=== PATIENT | female | born 1950 | race Caucasian/White ===

== ENCOUNTER → 2018-12-10 | Outpatient (CLI) | payer MEDICARE, OTHER ==
[~2018-12-10] MED LIST: ALBU90OI61 INH; B-100 COMPLEX100 MG PO; B-121000 MC2 PO; CALCA500CH PO; CALMAGZIN PO; CHROMAX PO; CYCL10 PO; Colace100 MG PO; Cyclobenzaprine5 MG PO; DEXILANT60 MG PO; ERGO50000 PO; FEXPSEER PO; HYDACE10B PO; LEVFLO500 PO; MULVITMIND PO; Norco 10-325 T1 EACH PO; ONDA8ODT MM; OXAP600 PO; Percocet 5-3251 EACH PO; TOCO1000 PO; TOLT2; UBID10 PO; [UNRECOGNIZED DRUG - CODE] PO
[2018-12-10 16:31] LABS: Hematocrit 41.8 % (33.0-51.0); Mean Corpuscular HGB Conc 31.1 g/dL (31.5-36.5); Mean Corpuscular Volume 96 fL (80-100); Mean Platelet Volume 11.1 fL (9.1-12.4); Platelet Count 202 K/mm3 (150-400); RDW Coefficient Variation 13.2 % (11.7-14.2); RDW Standard Deviation 46.5 fL (35.1-46.3); Red Blood Cell Count 4.34 M/mm3 (3.80-5.20)
[2018-12-10 16:48] LABS: Alanine Aminotransfer (ALT/SGP 27 U/L (12-78); Albumin, Blood 3.9 g/dL (3.4-5.0); Albumin/Globulin Ratio 1.2 (0.8-1.8); Alk Phos 44 U/L (50-136); Anion Gap 6 mmol/L (6-16); Aspartate Aminotrans (AST/SGOT 19 U/L (12-37); Bilirubin, Total 0.3 mg/dL (0.1-1.0); Blood Urea Nitrogen 13 mg/dL (8-24); CHOL/HDL RATIO 4.9; CO2, Blood 26 mmol/L (21-32); Calcium, Blood 9.2 mg/dL (8.5-10.1); Chloride, Blood 108 mmol/L (98-108); Cholesterol 278 mg/dL (50-200); Globulin, Blood 3.2 g/dL (2.2-4.0); Glucose, Blood 88 mg/dL (70-99); HDL Cholesterol 57 mg/dL (>39); LDL/HDL RATIO 3.1; Low Density Lipoprotein Chol 176 mg/dL (0-110); Potassium, Blood 4.5 mmol/L (3.5-5.5); Sodium, Blood 140 mmol/L (136-145); Total Protein, Blood 7.1 g/dL (6.4-8.2); Triglycerides 226 mg/dL (30-160); Very Low Density Lipoprot Chol 45 mg/dL (6-32)
[2018-12-10 16:53] LABS: Bun/Creatinine Ratio 20.2 (12.0-20.0); Creatinine, Blood 0.64 mg/dL (0.40-1.00); Glomerular Filtration Rate >60 (60-)
[2018-12-10 17:04] LABS: BASOPHILS PERCENT MAN 0 % (0-2); EOSINOPHILS ABSOLUTE MAN 0.23 K/mm3 (0.00-0.68); EOSINOPHILS PERCENT MAN 2 % (0-6); LYMPHOCYTES ABSOLUTE MAN 7.37 K/mm3 (0.84-5.20); LYMPHOCYTES PERCENT MAN 62 % (21-46); MONOCYTES ABSOLUTE MAN 0.71 K/mm3 (0.16-1.47); MONOCYTES PERCENT MAN 6 % (4-13); NEUTROPHILS ABSOLUTE MAN 3.57 K/mm3 (1.96-9.15); SEG NEUTROPHILS PERCENT MAN 30 % (41-73); TOTAL CELLS COUNTED 100
== END | disposition home or self-care (01) ==
LOC: LAB 16:20 → LAB SHORT 16:20
PROVIDERS: Internal Medicine
DX: K22.70 Barrett's esophagus without dysplasia (principal); K20.8 Other esophagitis; E78.5 Hyperlipidemia, unspecified; E04.2 Nontoxic multinodular goiter; D72.829 Elevated white blood cell count, unspecified; G25.81 Restless legs syndrome; G47.33 Obstructive sleep apnea (adult) (pediatric); Z85.3 Personal history of malignant neoplasm of breast
CPT/HCPCS: 80053; 80061; 84443; 85025

== ENCOUNTER → 2019-06-10 | Outpatient (CLI) | payer MEDICARE, OTHER ==
[2019-06-10 16:21] LABS: CHOL/HDL RATIO 5.9; Cholesterol 301 mg/dL (50-200); HDL Cholesterol 51 mg/dL (>39); LDL/HDL RATIO 3.8; Low Density Lipoprotein Chol 193 mg/dL (0-110); Triglycerides 287 mg/dL (30-160); Very Low Density Lipoprot Chol 57 mg/dL (6-32)
== END | disposition home or self-care (01) ==
LOC: LAB SHORT 11:50 → LAB 11:50
PROVIDERS: Internal Medicine
DX: E78.5 Hyperlipidemia, unspecified (principal)
CPT/HCPCS: 80061

== ENCOUNTER 2019-06-18 07:50 | Day surgery (SDC) | payer MEDICARE, OTHER ==
[2019-06-20 17:05] LABS: Performing Lab SYMBIODX; Test Name TISSUE BLOCK
== END 2019-06-18 22:55 | disposition home or self-care (01) ==
LOC: MOI US 07:50 → MOI MAM 06-20 09:00 → MOI US 06-20 09:00
PROVIDERS: Internal Medicine Hematology & Oncology
DX: C50.411 Malignant neoplasm of upper-outer quadrant of right female breast (principal); Z17.0 Estrogen receptor positive status [ER+]; Z85.3 Personal history of malignant neoplasm of breast
CPT/HCPCS: 19083; 77065; 88305; 88341; 88342; 88360; 88374; A4648

== ENCOUNTER → 2019-12-09 | Outpatient (CLI) | payer MEDICARE, OTHER ==
[2019-12-09 19:35] LABS: Influenza A Negative (NEGATIVE); Influenza B Negative (NEGATIVE)
== END ==
LOC: LAB 17:44 → LAB SHORT 17:44
DX: R50.9 Fever, unspecified (principal)
CPT/HCPCS: 87804

== ENCOUNTER → 2019-12-16 | Outpatient (CLI) | payer MEDICARE, OTHER | END | disposition home or self-care (01) | LOC: LAB SHORT 11:08 → LAB 11:08 | DX: L03.313 Cellulitis of chest wall (principal) | CPT/HCPCS: 87070; 87205 ==

== ENCOUNTER → 2022-06-01 | Outpatient (CLI) | payer MEDICARE, OTHER ==
[2022-06-01 18:35] LABS: Percent Saturation 19.4 % (15.0-50.0)
[2022-06-01 18:37] LABS: Albumin, Blood 3.8 g/dL (3.4-5.0); Albumin/Globulin Ratio 1.5 (0.8-1.8); Bilirubin, Total 0.2 mg/dL (0.1-1.0); Bun/Creatinine Ratio 26.7 (12.0-20.0); Creatinine, Blood 0.67 mg/dL (0.40-1.00); Globulin, Blood 2.6 g/dL (2.2-4.0); Phosphorus, Blood 3.8 mg/dL (2.5-4.9); Potassium, Blood 4.3 mmol/L (3.5-5.5); Total Protein, Blood 6.4 g/dL (6.4-8.2)
== END | disposition home or self-care (01) ==
LOC: LAB 13:57 → LAB SHORT 13:57
PROVIDERS: Internal Medicine Hematology & Oncology
DX: C50.911 Malignant neoplasm of unspecified site of right female breast (principal); D50.9 Iron deficiency anemia, unspecified
CPT/HCPCS: 80053; 82728; 83540; 83550; 84100